=== PATIENT | male | born 1990 | race Caucasian/White ===

== ENCOUNTER 2018-11-04 18:06 | Emergency (ER) | payer OTHER ==
[2018-11-04 18:16] VITALS: BP 147/91; PULSE 91; RESP 16; TEMP 98.8
--- NOTE | 2018-11-04 19:05 | XR ---
EXAMINATION TYPE: XR finger LT DATE OF EXAM: 11/04/2018 COMPARISON: NONE HISTORY: Laceration crushing injury with pain. TECHNIQUE: 3 views left fourth finger are acquired. FINDINGS: Overlying bandage or gauze material is present. There is acute open fracture minimally disp laced to distal portion of distal phalanx. Punctate densities in the adjacent soft tissue are seen, l argest is round and under 1 mm along radial palmar aspect. Joint spaces in left fourth finger are terra ntained. IMPRESSION: There is acute comminuted minimally displaced open fracture distal aspect of fourth dista l phalanx. (Initial encounter open type post traumatic fracture.)
[2018-11-04] MEDS ORDERED: HYDROcodone/APAP 7.5-325MG 1 EACH TAB PO ONE (19:53)
[2018-11-04] MEDS ORDERED: DIPH,PERTUS(ACELL)TETVAC-LF 0.5 ML VIAL IM ONE (19:54)
[2018-11-04] MEDS ORDERED: ceFAZolin IN SWFI 2 GM/20 ML SYRINGE IVP ONE (20:56)
[2018-11-04] MEDS ORDERED: LIDOCAINE 1% INJ 10MG/ML (20 ML MDV) SQ STA (20:57)
--- NOTE | 2018-11-04 20:57 | ED ---
General Adult HPI - General Chief complaint: Wound/Laceration Stated complaint: Finger Lac Source: patient Mode of arrival: ambulatory Limitations: no limitations - History of Present Illness Initial comments: 28-year-old male patient with no pertinent past medical history presents to ED with acute injury to distal fourth digit on left hand. Patient reports that he was carrying a transmission for a car when slipped and fell onto the distal aspect of his left hand. Patient denies any other injury. Patient has any other injury to left hand besides distal left fourth digit. Patient denies other complaints. Patient does not know date of last tetanus. Systemic: Pt denies fatigue, myalgia, fever/chills, rash. Pt denies weakness, night sweats, weight loss. Neuro: Pt denies headache, visual disturbances, syncope or pre-syncope. HEENT: Pt denies ocular discharge or irritation, otalgia, rhinorrhea, pharyngitis or notable lymphadenopathy. Cardiopulmonary: Pt denies chest pain, SOB, heart palpitations, dyspnea on exertion. Abdominal/GI: Pt denies abdominal pain, n/v/d. : Pt denies dysuria, burning w/ urination, frequency/urgency. Denies new onset urinary or bowel incontinence. MSK: Pt denies myalgia. Neuro: Pt denies new onset weakness, paresthesias. - Related Data Previous Rx's Medication Instructions Recorded Cephalexin [Keflex] 500 mg PO Q12HR 10 Days cap 11/04/18 Ibuprofen [Motrin] 600 mg PO Q6HR PRN #40 day 11/04/18 Sulfamethox-Tmp 800-160Mg [Bactrim 1 tab PO Q12HR #20 tab 11/04/18 DS 800-160 mg] Allergies Allergy/AdvReac Type Severity Reaction Status Date / Time No Known Allergies Allergy Verified 11/04/18 18:16 Review of Systems ROS Statement: Those systems with pertinent positive or pertinent negative responses have been documented in the HPI. ROS Other: All systems not noted in ROS Statement are negative. Past Medical History Past Medical History: No Reported History History of Any Multi-Drug Resistant Organisms: None Reported Past Surgical History: No Surgical Hx Reported Past Psychological History: No Psychological Hx Reported Smoking Status: Current every day smoker Past Alcohol Use History: None Reported Past Drug Use History: None Reported General Exam - General Exam Comments Initial Comments: Constitutional: NAD, AOX3, Pt has pleasant affect. HEENT: NC/AT, trachea midline, neck supple, no lymphadenopathy. Posterior pharynx non erythematous, without exudates. External ears appear normal, without discharge. Mucous membranes moist. Eyes PERRLA, EOM intact. There is no scleral icterus. No pallor noted. Cardiopulmonary: RRR, no murmurs, rubs or gallops, no JVD noted. Lungs CTAB in anterior and posterior greene. No peripheral edema. Abdominal exam: Abdomen soft and non-distended. Abdomen non-tender to palpation in all 4 quadrants. Bowel sounds active in LLQ. No hepatosplenomegaly. No ecchymosis Neuro: CN II-XII grossly intact. No nuchal rigidity. MSK: Approximately 6 cm laceration on volar aspect of 4th digit on L hand. Laceration spairs the nailbed. Pt has moderate tenderness to palpation of distal aspect of 4th digit of L hand. No ttp to DIP joint. Pt has full rom of digit. Flexion/extension intact of MCP, PIP and DIP joint. Sensation intact. Capillary refill <2 seconds. No other areas of tenderness to L hand. No other injuries identified. Neurovascularly intact. Sensation intact. No posterior calf tenderness bilaterally, homans sign negative bilaterally. Posterior tibialis and radial pulse +2 bilaterally. Sensation intact in upper and lower extremities. Full active ROM in upper and lower extremities, 5/5 stregnth. Limitations: no limitations Course Vital Signs 11/04/18 18:15 Temperature 98.8 F Pulse Rate 91 Respiratory 16 Rate Blood Pressure 147/91 O2 Sat by Pulse 98 Oximetry Procedures - Laceration Laceration #1 Consent Obtained: verbal consent Time Out Performed: Yes Indication: laceration Site: hand Size (cm): 6 Description: irregular Depth: simple, single layer Anesthetic Used: lidocaine 1% Anesthesia Technique: nerve block Amount (mls): 4 Pre-repair: wound explored, irrigated extensively Size of Sutures: 5-0 Number of Sutures: 8 Technique: simple, interrupted Patient Tolerated Procedure: well, no complications Medical Decision Making - Medical Decision Making 28-year-old male patient with no pertinent past medical history presents to ED with acute injury to distal fourth digit on left hand. Patient reports that he was carrying a transmission for a car when slipped and fell onto the distal aspect of his left hand. Patient denies any other injury. Pt VSS. Physical exam displayed: Approximately 6 cm laceration on volar aspect of 4th digit on L hand. Laceration spairs the nailbed. Pt has moderate tenderness to palpation of distal aspect of 4th digit of L hand. No ttp to DIP joint. Pt has full rom of digit. Flexion/extension intact of MCP, PIP and DIP joint. Sensation intact. Capillary refill <2 seconds. No other areas of tenderness to L hand. Plain film of fourth digit on left hand displayed acute comminuted minimally displaced open fracture distal aspect of fourth distal phalanx. Pharmacy was consult that, Betzaida Copeland reccomended 2G keflex in ED - adminstered to pt. Pt tetanus updated. Wound vigorously irrigated with 2 L of normal saline. Wound was cleaned extensively with betadine. Patient administered one Silas for pain. Wound anesthetized with digital block of affected digit. Laceration was closed as much as possible with 8 simple interrupted sutures. Explained to pt due to crushing nature of trauma, would will not be 100% approximated. Pt verbalized understanding. Explained to patient that wound is at high risk of infection, signs or symptoms of infection, wound care management and expectations. Patient verbalized understanding. Patient finger placed in a removable finger splint. Patient rx 10 days of Keflex and Bactrim. Patient to follow-up with PCP in 1-2 days. Patient to follow up with orthopedic consult 1- 2 days. Patient Rx ibuprofen to use as needed for pain. Pt to return to ED in 7 -10 days for suture removal. Patient not driving home. Patient to return to ED if new signs or symptoms develop, symptoms of infection develop, or if condition worsens in any way. Patient discussed and seen by Dr. Alves. Disposition Clinical Impression: Laceration Disposition: HOME SELF-CARE Condition: Fair Instructions: Care For Your Stitches (ED), Finger Laceration (ED) Additional Instructions: Patient to adhere to previously discussed treatment plan and will take medication(s) as directed. Patient to follow up with PCP in 1-2 days. Patient to return to ED if symptoms do not improve. Prescriptions: Cephalexin [Keflex] 500 mg PO Q12HR 10 Days cap Ibuprofen [Motrin] 600 mg PO Q6HR PRN #40 day PRN Reason: Pain Sulfamethox-Tmp 800-160Mg [Bactrim DS 800-160 mg] 1 tab PO Q12HR #20 tab Is patient prescribed a controlled substance at d/c from ED?: No Referrals: None,Stated [Primary Care Provider] - 1-2 days Rod Arguelles MD [Medical Doctor] - 1-2 days Time of Disposition: 22:26
== END 2018-11-04 22:40 | disposition home or self-care (01) ==
LOC: EC 18:06
DX: S61.215A Laceration without foreign body of left ring finger without damage to nail, initial encounter (principal); F17.200 Nicotine dependence, unspecified, uncomplicated; Z23 Encounter for immunization; W20.8XXA Other cause of strike by thrown, projected or falling object, initial encounter
CPT/HCPCS: 99283; 12002; 96374; 90471; 73140; 90715; J2001; J0690